=== PATIENT | female | born 1980 | race Hispanic/Latino ===

== ENCOUNTER 2017-05-18 16:44 | Emergency (ER) | payer OTHER ==
[2017-05-18 17:02] VITALS: TEMP 98.5
[2017-05-18] MEDS ORDERED: TDAP Vaccine 0.5 mL Syr IM ONE (17:24)
--- NOTE | 2017-05-18 17:28 | ED PDOC ---
Arrival/HPI - General Chief Complaint: Finger,Hand,&Wrist Time Seen by Provider: 05/18/17 17:23 Historian: Patient - History of Present Illness Narrative History of Present Illness (Text): 05/18/17 17:25 This 37 yo female presents to this ED c/o right hand pain x [employer]. Patient stated while crossing street, she tripped and fell down. Patient stated she tried to brace herself by placing her right hand on the floor. Last tetanus is unknown. Patient is right hand dominant. Denies other complains. Time/Duration: Prior to Arrival Context: Home Past Medical History - Provider Review Nursing Documentation Reviewed: Yes - Psychiatric Hx Psychophysiologic Disorder: Yes Hx Anxiety: Yes Hx Substance Use: No - Surgical History Other/Comment: AB Family/Social History - Physician Review Nursing Documentation Reviewed: Yes Family/Social History: Other (noncontributory) Smoking Status: Never Smoked Hx Alcohol Use: Yes Frequency of alcohol use: Socially Hx Substance Use: No Allergies/Home Meds Allergies/Adverse Reactions: Allergies No Known Allergies Allergy (Verified 05/18/17 16:55) Home Medications: Home Meds Medication Instructions Recorded Confirmed No Known Home Med 05/18/17 05/18/17 Review of Systems - Review of Systems Constitutional: Normal. absent: Fatigue, Weight Change, Fevers, Night Sweats Eyes: Normal ENT: Normal Respiratory: Normal Cardiovascular: Normal Gastrointestinal: Normal Genitourinary Female: Normal Musculoskeletal: Other (see hpi) Skin: Other (right hand abrasion) Neurological: Normal Endocrine: Normal Hemo/Lymphatic: Normal Psychiatric: Normal Physical Exam Vital Signs Temp Pulse Resp BP Pulse Ox 05/18/17 17:01 98.5 F 87 16 105/68 97 Temperature: Afebrile Blood Pressure: Normal Pulse: Regular Respiratory Rate: Normal Appearance: Positive for: Well-Appearing, Non-Toxic, Comfortable Pain Distress: None Mental Status: Positive for: Alert and Oriented X 3 - Systems Exam Head: Present: Atraumatic, Normocephalic Pupils: Present: PERRL Extroacular Muscles: Present: EOMI Conjunctiva: Present: Normal Mouth: Present: Moist Mucous Membranes Neck: Present: Normal Range of Motion Respiratory/Chest: Present: Clear to Auscultation, Good Air Exchange. No: Respiratory Distress, Accessory Muscle Use Cardiovascular: Present: Regular Rate and Rhythm, Normal S1, S2. No: Murmurs Abdomen: Present: Normal Bowel Sounds. No: Tenderness, Distention, Peritoneal Signs Back: Present: Normal Inspection. No: CVA Tenderness Upper Extremity: Present: Normal Inspection, Normal ROM. No: Cyanosis, Edema Lower Extremity: Present: Normal Inspection, Normal ROM. No: Edema Neurological: Present: GCS=15, CN II-XII Intact, Speech Normal, Motor Func Grossly Intact, Normal Sensory Function, Normal Cerebellar Funct, Gait Normal Skin: Present: Warm, Dry, Normal Color. No: Rashes Psychiatric: Present: Alert, Oriented x 3, Normal Insight, Normal Concentration Medical Decision Making ED Course and Treatment: 05/18/17 18:49 Re-evaluation. Patient feels better. Discussed results and plan with patient who expresses understanding. All questions answered and there is agreement with the plan to discharge home with instructions. Patient stable for discharge. Return if symptoms persist or worsen. Patient was recommended to follow up with her PMD in 1-2 days. Clean wound daily with soap and water and apply Neosporin ointment. To return to emergency if abrasion gets infected. Re-evaluation Time: 18:51 Reassessment Condition: Re-examined, Improved - RAD Interpretation Narrative RAD Interpretations (Text): 05/18/17 18:51 Hand x-rays: No Fx or FB Radiology Orders: 05/18/17 17:24 HAND RIGHT 3 VIEWS [RAD] Stat - Medication Orders Current Medication Orders: Discontinued Medications Tetanus/Reduced Diphtheria/Acell Pertussis (Boostrix Vaccine Inj) 0.5 ml IM .ONCE ONE Stop: 05/18/17 17:25 Last Admin: 05/18/17 18:06 Dose: 0.5 ml MAR Immunization Data Document 05/18/17 18:06 ARELIS (Rec: 05/18/17 18:07 [facility] [id number]) Immunization Data Vaccine Information Sheet Given No Immunization Registry Document 05/18/17 18:06 ARELIS (Rec: 05/18/17 18:07 MARY [id number]) Immunization Registry Consent Date 05/18/17 Disposition/Present on Arrival - Present on Arrival Any Indicators Present on Arrival: No History of DVT/PE: No History of Uncontrolled Diabetes: No Urinary Catheter: No History of Decub. Ulcer: No History Surgical Site Infection Following: None - Disposition Have Diagnosis and Disposition been Completed?: Yes Diagnosis: Hand abrasion, Fall (on)(from) sidewalk curb, initial encounter, Hand pain Disposition: HOME/ ROUTINE Disposition Time: 18:52 Patient Plan: Discharge Patient Problems: Current Active Problems Problem Status Onset Fall (on)(from) sidewalk curb, initial encounter Acute Hand abrasion Acute Hand pain Acute Condition: GOOD Discharge Instructions (ExitCare): Skin Abrasions, Hand Pain (DC) Additional Instructions: Call private doctor for follow up visit in 1-2 days for wound check. Clean abrasion daily with soap and water and apply OTC Neosporin and band aid. return to emergency if wound becomes infected, or worsening of hand pain. If you don't have primary care doctor, you can call Dr. Moreira [facility] - Follow up with primary Maryanne Moreira MD [Staff Provider] - Follow up with primary Forms: [employer] (Slovenian)
[2017-05-18 19:19] VITALS: BP 111/62; PULSE 80; RESP 18; O2SAT 99
--- NOTE | 2017-05-19 07:32 | RAD ---
PROCEDURE: Right Hand Radiographs. HISTORY: pain r/o FB COMPARISON: None. FINDINGS: BONES: No acute fracture or destructive bony lesion identified. JOINTS: Normal. No osteoarthritic changes. SOFT TISSUES: No definite retained radiodense foreign body appreciable. OTHER FINDINGS: None. IMPRESSION: No definite retained radiodense foreign body identified. No acute fracture or dislocation right hand.
== END 2017-05-18 19:21 | disposition home or self-care (01) ==
LOC: ED 16:44
DX: S60.511A Abrasion of right hand, initial encounter (principal); W01.0XXA Fall on same level from slipping, tripping and stumbling without subsequent striking against object, initial encounter; Y92.480 Sidewalk as the place of occurrence of the external cause; M79.641 Pain in right hand; Z23 Encounter for immunization